=== PATIENT | female | born 1935 | race Caucasian/White ===

== ENCOUNTER 2021-12-14 10:59 | Inpatient (IN) | payer MEDICARE, BC ==
[~2021-12-14 10:59] MED LIST: ISOVUE-370 76%-LOCM 1 ML ONE
[2021-12-14 11:52] LABS: #Basophils 0.1 thou/uL (0.0-0.2); #Lymphocytes 2.3 thou/uL (1.20-3.40); #Monocytes 0.5 thou/uL (0.11-0.59); #Neutrophils 8.7 thou/uL (1.40-6.50); %Basophils 0.6 % (0.0-1.0); %Eosinophils 0.4 % (0.0-10.0); %Monocytes 4.1 % (0.0-10.0); Hemoglobin 13.7 g/dL (12.0-16.0); Mean Corpuscular HGB CONC 32.3 g/dL (32.0-36.0); Mean Corpuscular Hemoglobin 31.7 pg (27.0-31.0); Mean Corpuscular Volume 97.9 fL (78.0-98.0); Mean Platelet Volume 7.6 fL (7.4-10.4); Platelet Count 223 thou/uL (130-400); RBC Distribution Width 11.8 % (11.5-14.5); Red Blood Cell (RBC) Count 4.33 mill/uL (4.20-5.40); White Blood Cell (WBC) Count 11.6 thou/uL (4.8-10.8)
[2021-12-14 12:14] LABS: Bilirubin Negative (Negative); Blood, Urine Negative (Negative); Clarity Clear (Clear); Glucose, Urine (Dipstick) Normal (Negative); Ketone, Urine Trace mg/dL (Negative); Leukocyte Negative Leu/uL (Negative); Nitrite Negative (Negative); Protein, Urine (Dipstick) 20 mg/dL (Neg-Trace); Specific Gravity, Urine 1.022 (1.002-1.036); Urobilinogen Normal mg/dL (Less than 2)
[2021-12-14 12:15] LABS: ALT (SGPT) 11 U/L (8-55); AST (SGOT) 18 U/L (5-34); Albumin 4.1 g/dL (3.4-4.8); Alkaline Phosphatase 74 U/L (40-110); Anion Gap 16 mmol/L (10-20); BUN (Urea Nitrogen) 13 mg/dL (9.8-20.1); Bilirubin, Total 0.7 mg/dL (0.2-1.2); Calc. Creatinine Clearance 0 mL/min (70-130); Calcium 9.2 mg/dL (7.8-10.44); Carbon Dioxide 21 mmol/L (23-31); Chloride 109 mmol/L (98-107); Estimated GFR 57; Globulin 2.9 g/dL (2.4-3.5); Glucose 185 mg/dL (83-110); Potassium 3.7 mmol/L (3.5-5.1); Sodium 142 mmol/L (136-145)
[2021-12-14] MEDS ORDERED: Vancomycin 1 GM/200 ML BAG ONE (12:38)
[2021-12-14] MEDS ORDERED: diphenhydrAMINE 50 MG/ML VIAL ONE (13:30)
[2021-12-14] MEDS ORDERED: Lorazepam 2 MG/ML VIAL ONE (13:56)
[2021-12-14 15:00] LABS: Lactic Acid 2.2 mmol/L (0.5-2.2)
[2021-12-14] MEDS ORDERED: Acetaminophen 325 MG TAB PO PRN (15:09)
[2021-12-14] MEDS ORDERED: Magnesium 2 GM/50 ML(in water) 2 GM in Premix Bag 1 BAG IVPB SCH (15:30)
[2021-12-14 15:53] LABS: Magnesium 2.2 mg/dL (1.6-2.6)
[2021-12-14] MEDS ORDERED: Potassium Chloride 20 MEQ TAB PO SCH (18:30)
[2021-12-14 18:34] VITALS: BMI 21.9
[2021-12-14] MEDS: Lactated Ringer's 1,000 ML IV SCH (19:00)
[2021-12-14] MEDS: Simvastatin 10 MG TAB PO SCH (21:26)
[2021-12-14] MEDS: Cefepime 2 GM in Sodium Chloride 0.9% 100 ML IVPB SCH (21:26)
[2021-12-15] MEDS: Lactated Ringer's 1,000 ML IV SCH ×2 (05:38→09:12)
[2021-12-15 07:26] LABS: #Lymphocytes 1.9 thou/uL (1.20-3.40); #Monocytes 0.8 thou/uL (0.11-0.59); #Neutrophils 5.7 thou/uL (1.40-6.50); %Basophils 0.1 % (0.0-1.0); %Eosinophils 0.5 % (0.0-10.0); %Lymphocytes 22.4 % (21.0-51.0); %Monocytes 9.3 % (0.0-10.0); %Neutrophils 67.7 % (42.0-75.0); Hemoglobin 13.2 g/dL (12.0-16.0); Mean Corpuscular HGB CONC 32.2 g/dL (32.0-36.0); Mean Corpuscular Hemoglobin 31.7 pg (27.0-31.0); Mean Corpuscular Volume 98.5 fL (78.0-98.0); Mean Platelet Volume 9.1 fL (7.4-10.4); Platelet Count 144 thou/uL (130-400); RBC Distribution Width 11.8 % (11.5-14.5); Red Blood Cell (RBC) Count 4.17 mill/uL (4.20-5.40); White Blood Cell (WBC) Count 8.5 thou/uL (4.8-10.8)
[2021-12-15 07:38] LABS: Chloride 110 mmol/L (98-107); Potassium 4.4 mmol/L (3.5-5.1); Sodium 138 mmol/L (136-145)
[2021-12-15 07:39] LABS: Calcium 8.9 mg/dL (7.8-10.44); Glucose 90 mg/dL (83-110)
[2021-12-15 07:41] LABS: Anion Gap 15 mmol/L (10-20); Carbon Dioxide 17 mmol/L (23-31)
[2021-12-15 07:43] LABS: BUN (Urea Nitrogen) 9 mg/dL (9.8-20.1); Calc. Creatinine Clearance 40 mL/min (70-130); Estimated GFR 73
[2021-12-15] MEDS ORDERED: Losartan 25 MG TAB PO SCH (09:00)
[2021-12-15] MEDS: Cefepime 2 GM in Sodium Chloride 0.9% 100 ML IVPB SCH ×2 (09:11→22:06)
[2021-12-15] MEDS: Enoxaparin Sodium 30 MG/0.3 ML SYRINGE SC SCH (09:11)
[2021-12-15] MEDS: Famotidine 20 MG TAB PO SCH (11:35)
[2021-12-15] MEDS ORDERED: Lorazepam 2 MG/ML VIAL SLOW IVP PRN (16:51)
[2021-12-15] MEDS: Simvastatin 10 MG TAB PO SCH (22:06)
[2021-12-16 04:28] LABS: #Lymphocytes 1.5 thou/uL (1.20-3.40); #Monocytes 0.8 thou/uL (0.11-0.59); #Neutrophils 5.6 thou/uL (1.40-6.50); %Basophils 0.1 % (0.0-1.0); %Eosinophils 0.6 % (0.0-10.0); %Lymphocytes 18.3 % (21.0-51.0); %Monocytes 10.4 % (0.0-10.0); %Neutrophils 70.7 % (42.0-75.0); Hemoglobin 13.4 g/dL (12.0-16.0); Mean Corpuscular HGB CONC 32.8 g/dL (32.0-36.0); Mean Corpuscular Hemoglobin 31.7 pg (27.0-31.0); Mean Corpuscular Volume 96.8 fL (78.0-98.0); Mean Platelet Volume 8.5 fL (7.4-10.4); Platelet Count 214 thou/uL (130-400); RBC Distribution Width 11.6 % (11.5-14.5); Red Blood Cell (RBC) Count 4.22 mill/uL (4.20-5.40); White Blood Cell (WBC) Count 7.9 thou/uL (4.8-10.8)
[2021-12-16 04:50] LABS: Anion Gap 15 mmol/L (10-20); BUN (Urea Nitrogen) 8 mg/dL (9.8-20.1); Calc. Creatinine Clearance 39 mL/min (70-130); Calcium 9.5 mg/dL (7.8-10.44); Carbon Dioxide 21 mmol/L (23-31); Chloride 108 mmol/L (98-107); Estimated GFR 70; Glucose 98 mg/dL (83-110); Sodium 140 mmol/L (136-145)
[2021-12-16] MEDS: Enoxaparin Sodium 30 MG/0.3 ML SYRINGE SC SCH (08:43)
[2021-12-16] MEDS: Famotidine 20 MG TAB PO SCH (08:43)
[2021-12-16] MEDS: Cefepime 2 GM in Sodium Chloride 0.9% 100 ML IVPB SCH (08:43)
[2021-12-16 16:16] VITALS: BP 131/74; TEMP 98.8
== END 2021-12-16 17:00 | disposition home or self-care (01) | DRG 314 ==
LOC: ERS 10:59 → 2NO 15:09 → OBSVTOIN 12-15 15:10
PROVIDERS: ADMIT Hospitalist; ATTEND Family Medicine
DX: I95.9 Hypotension, unspecified (principal); G93.41 Metabolic encephalopathy; E87.2 Acidosis; I95.1 Orthostatic hypotension; F03.90 Unspecified dementia, unspecified severity, without behavioral disturbance, psychotic disturbance, mood disturbance, and anxiety; I10 Essential (primary) hypertension; E86.0 Dehydration; Z20.822 Contact with and (suspected) exposure to COVID-19; M81.0 Age-related osteoporosis without current pathological fracture; Z85.038 Personal history of other malignant neoplasm of large intestine
CPT/HCPCS: 36415; 36416; 51701; 70450; 71045; 71275; 72125; 74177; 80048; 80053; 81003; 83605; 83735; 84484; 85025; 87040; 87086; 93005; 93010; 93306; 96361; 96365; 96367; 96372; 96375; 96376; G0378; J0692; J1200; J1650; J2060; J3370; J3490; J7120; Q9966; U0003; U0005